=== PATIENT | male | born 1950 | race Caucasian/White ===

== ENCOUNTER 2018-06-02 20:43 | Emergency (ER) | payer MEDICARE ==
[~2018-06-02] VITALS: Ht 172.7 cm; Wt 93.0 kg
[~2018-06-02 20:43] MED LIST: AMLO10TA6 PO; AMLO5TAB7 PO; ASPI-482 PO; AZIT500T PO; COLE1TAB PO; DICY10CA53 PO; FAMO20TA5 PO; HYDR-2868 PO; LOSA100T7 PO; OMEP40CA5 PO; VALS1TAB22 PO; lidocaine cream TOP
[2018-06-02] MEDS ORDERED: ACETAMINOPHEN 500 MG TABLET PO ONE (21:45)
[2018-06-02] MEDS ORDERED: ONDANSETRON PF 4 MG/2 ML VIAL. IV ONE ×2 (22:00→22:15)
--- NOTE | 2018-06-02 22:06 | RAD ---
PQRS Compliance statement: One or more of the following individualized dose reduction techniques were utilized for this examination: 1. Automated exposure control. 2. Adjustment of the mA and/or kV according to patient size. 3. Use of iterative reconstruction technique. Indication:FALL, NECK PAIN, NO PRIORS TECHNIQUE: CT head without IV contrast COMPARISON:None FINDINGS: No pathologic extra-axial or intra-axial fluid collection. The ventricles and basal cisterns are within normal limits. No acute intracranial bleed. Right suboccipital craniectomy. No focal loss of valdovinos-white differentiation. No acute calvarial fractures. The mastoid air cells are clear. IMPRESSION: 1. No acute intracranial process. 2. Right suboccipital craniectomy. Clinically correlate with surgical history. Indication:FALL, NECK PAIN, NO PRIORS TECHNIQUE: CT of the maxillofacial bones without IV contrast multiplanar reformats. COMPARISON: None FINDINGS: Nondisplaced fracture is seen of the right nasal bone. There is opacification of the nasal cavity. Nasal septum is deviated to the right side. There is partial opacification of the anterior ethmoid air cells. Trace amount of dependent fluid is seen in the bilateral maxillary sinuses. Mucous retention cyst or polyp is seen in the left maxillary sinus. The mandible and temporomandibular joints are within normal limits. The lenses, globes, extraocular muscles and intraorbital fat are within normal limits. The noncontrast appearance of the suprahyoid neck soft tissues within normal limits. IMPRESSION: 1. Nondisplaced right nasal bone fracture. 2. Opacification of the nasal cavity may be from hematoma or mucous plugging. Clinically correlate. 3. Findings of chronic sinus disease involving ethmoid air cells and bilateral maxillary sinuses. Indication:FALL, NECK PAIN, NO PRIORS TECHNIQUE: CT of the cervical spine without IV contrast with multiplanar reformats. COMPARISON:None FINDINGS: The cervical spine is in normal anatomic alignment. Atlantoaxial joint interval is preserved. No compression deformities. Facet joints are in normal anatomic alignment. No acute fractures. The noncontrast appearance of the neck soft tissues is within normal limits. Clear lung apices. IMPRESSION: 1. No acute fractures. 2. Mild to moderate multilevel degenerative disc disease. Electronically signed by: Jeb White DO (06/02/2018 10:03 PM) [facility]
[2018-06-02 22:10] LABS: BASO # 0.1 x10^3/uL (0.0-0.2); BASO % 1 % (0-3); EOS # 0.1 x10^3/uL (0.0-0.7); EOS % 2 % (0-3); HEMATOCRIT 41.5 % (39.0-53.0); HEMOGLOBIN 14.8 g/dL (13.0-17.5); LYMPH # 1.3 x10^3/uL (1.0-4.8); LYMPH % 19 % (24-48); MEAN CORPUSCULAR HEMOGLOBIN 32 pg (25-35); MEAN CORPUSCULAR HGB CONC 36 g/dL (31-37); MEAN CORPUSCULAR VOLUME 90 fL (79-100); MONO # 0.6 x10^3/uL (0.0-1.1); MONO % 9 % (0-9); NEUT # 4.7 x10^3uL (1.8-7.7); NEUT % 70 % (31-73); PLATELET COUNT 257 x10^3/uL (140-400); RED BLOOD COUNT 4.59 x10^6/uL (4.30-5.70); RED CELL DISTRIBUTION WIDTH 13.8 % (11.5-14.5); WHITE BLOOD COUNT 6.8 x10^3/uL (4.0-11.0)
--- NOTE | 2018-06-02 22:14 | PHYS DOC ---
Past Medical History Past Medical History: Cancer, Hypertension, OH Additional Past Medical Histor: Prostate Cancer, Cardiac Stents Additional Past Surgical Histo: Prostectomy, cardiac stents, L rotator cuff, L arm "muscle rebuild" Alcohol Use: Occasionally Drug Use: None Adult General Chief Complaint Chief Complaint: MECHANICAL FALL HPI HPI Patient is a 67 year old male who presents with going down for what stairs states that he stepped on the last stair wrong and fell face forward into the bumper of a car. Patient denies LOC or nausea or vomiting. Patient is on blood thinners. He is on Plavix and has a history of a OH and hypertension. Patient states he has not taken any of his meds. Review of Systems Review of Systems Constitutional: Denies fever or chills [] Eyes: Denies change in visual acuity, redness, or eye pain [] HENT: Denies nasal congestion or sore throat [] Respiratory: Denies cough or shortness of breath [] Cardiovascular: No additional information not addressed in HPI [] GI: Denies abdominal pain, nausea, vomiting, bloody stools or diarrhea [] : Denies dysuria or hematuria [] Musculoskeletal: Denies back pain or joint pain [] Integument: Denies rash or skin lesions [] Neurologic: Denies headache, focal weakness or sensory changes [] Endocrine: Denies polyuria or polydipsia [] All other systems were reviewed and found to be within normal limits, except as documented in this note. Current Medications Current Medications Current Medications Medications (Trade) Dose Ordered Sig/[facility] Start Time Stop Time Status Last Admin Dose Admin Acetaminophen (Tylenol) 1,000 mg 1X ONCE 06/02/18 21:45 06/02/18 21:46 DC Amlodipine Besylate (Norvasc) 5 mg 1X ONCE 06/02/18 22:30 06/02/18 22:31 DC 06/02/18 23:02 5 MG Lidocaine HCl (Glydo (Lidocaine) Jelly) 1 ayah 1X ONCE 06/02/18 23:15 06/02/18 23:17 DC Morphine Sulfate (Morphine Sulfate) 4 mg 1X ONCE 06/02/18 23:00 06/02/18 23:01 DC 06/02/18 23:02 4 MG Ondansetron HCl (Zofran) 4 mg 1X ONCE 06/02/18 22:00 06/02/18 22:01 UNV Oxymetazoline HCl (Afrin) 2 spray 1X ONCE 06/02/18 23:15 06/02/18 23:17 DC Sodium Chloride 1,000 ml @ 1,000 mls/hr 1X ONCE 06/02/18 22:15 06/02/18 23:14 DC 06/02/18 22:16 1,000 MLS/HR Allergies Allergies Allergies Coded Allergies Type Severity Reaction Last Updated Verified Beta-Blockers (Beta-Adrenergic Bloc Allergy Severe SHORTNESS OF AIR 03/31/15 Yes ciprofloxacin Allergy Severe Diarrhea 03/31/15 Yes Physical Exam Physical Exam Constitutional: Well developed, well nourished, no acute distress, non-toxic appearance. [] HENT: Normocephalic, atraumatic, bilateral external ears normal, oropharynx moist, no oral exudates, nose normal. [] Eyes: PERRLA, EOMI, conjunctiva normal, no discharge. [] Neck: Normal range of motion, no tenderness, supple, no stridor. [] Cardiovascular:Heart rate regular rhythm, no murmur [] Lungs & Thorax: Bilateral breath sounds clear to auscultation [] Abdomen: Bowel sounds normal, soft, no tenderness, no masses, no pulsatile masses. [] Skin: Warm, dry, no erythema, no rash. [] Back: No tenderness, no CVA tenderness. [] Extremities: No tenderness, no cyanosis, no clubbing, ROM intact, no edema. [] Neurologic: Alert and oriented X 3, normal motor function, normal sensory function, no focal deficits noted. [] Psychologic: Affect normal, judgement normal, mood normal. [] Current Patient Data Vital Signs Vital Signs Date Time Temp Pulse Resp B/P (MAP) Pulse Ox O2 Delivery O2 Flow Rate FiO2 06/02/18 23:24 92 12 95 06/02/18 23:02 Room Air 06/02/18 23:02 229/103 06/02/18 20:45 98.4 98.4 Lab Values Laboratory Tests Test 06/02/18 21:19 White Blood Count 6.8 x10^3/uL (4.0-11.0) Red Blood Count 4.59 x10^6/uL (4.30-5.70) Hemoglobin 14.8 g/dL (13.0-17.5) Hematocrit 41.5 % (39.0-53.0) Mean Corpuscular Volume 90 fL (79-100) Mean Corpuscular Hemoglobin 32 pg (25-35) Mean Corpuscular Hemoglobin Concent 36 g/dL (31-37) Red Cell Distribution Width 13.8 % (11.5-14.5) Platelet Count 257 x10^3/uL (140-400) Neutrophils (%) (Auto) 70 % (31-73) Lymphocytes (%) (Auto) 19 % (24-48) L Monocytes (%) (Auto) 9 % (0-9) Eosinophils (%) (Auto) 2 % (0-3) Basophils (%) (Auto) 1 % (0-3) Neutrophils # (Auto) 4.7 x10^3uL (1.8-7.7) Lymphocytes # (Auto) 1.3 x10^3/uL (1.0-4.8) Monocytes # (Auto) 0.6 x10^3/uL (0.0-1.1) Eosinophils # (Auto) 0.1 x10^3/uL (0.0-0.7) Basophils # (Auto) 0.1 x10^3/uL (0.0-0.2) Sodium Level 136 mmol/L (136-145) Potassium Level 3.6 mmol/L (3.5-5.1) Chloride Level 99 mmol/L (98-107) Carbon Dioxide Level 30 mmol/L (21-32) Anion Gap 7 (6-14) Blood Urea Nitrogen 20 mg/dL (8-26) Creatinine 0.8 mg/dL (0.7-1.3) Estimated GFR (Cockcroft-Gault) 97.0 Glucose Level 121 mg/dL (70-99) H Calcium Level 8.5 mg/dL (8.5-10.1) Troponin I Quantitative < 0.017 ng/mL (0.000-0.055) Laboratory Tests 06/02/18 21:19 Laboratory Tests 18 21:19 EKG EKG [address] Pagan[] Interpretation Time: Sinus Rythm no STEMI. Radiology/Procedures Radiology/Procedures [] Impressions: [facility] [address] [place] [address] IMAGING REPORT Signed PATIENT: NICOLE SIMS ACCOUNT: [id number] : 1950 LOCATION: ER AGE: 67 SEX: M EXAM STATUS: REG ER ORD. PHYSICIAN: JAZZ MCKENZIE APRN REASON: FALL AND WENT FACE FIRST INTO CAR BUMPER PROCEDURE: CT CERVICAL SPINE WO CONTRAST PQRS Compliance statement: One or more of the following individualized dose reduction techniques were utilized for this examination: 1. Automated exposure control. 2. Adjustment of the mA and/or kV according to patient size. 3. Use of iterative reconstruction technique. Indication:FALL, NECK PAIN, NO PRIORS TECHNIQUE: CT head without IV contrast COMPARISON:None FINDINGS: No pathologic extra-axial or intra-axial fluid collection. The ventricles and basal cisterns are within normal limits. No acute intracranial bleed. Right suboccipital craniectomy. No focal loss of valdovinos-white differentiation. No acute calvarial fractures. The mastoid air cells are clear. IMPRESSION: 1. No acute intracranial process. 2. Right suboccipital craniectomy. Clinically correlate with surgical history. Indication:FALL, NECK PAIN, NO PRIORS TECHNIQUE: CT of the maxillofacial bones without IV contrast multiplanar reformats. COMPARISON: None FINDINGS: Nondisplaced fracture is seen of the right nasal bone. There is opacification of the nasal cavity. Nasal septum is deviated to the right side. There is partial opacification of the anterior ethmoid air cells. Trace amount of dependent fluid is seen in the bilateral maxillary sinuses. Mucous retention cyst or polyp is seen in the left maxillary sinus. The mandible and temporomandibular joints are within normal limits. The lenses, globes, extraocular muscles and intraorbital fat are within normal limits. The noncontrast appearance of the suprahyoid neck soft tissues within normal limits. IMPRESSION: 1. Nondisplaced right nasal bone fracture. 2. Opacification of the nasal cavity may be from hematoma or mucous plugging. Clinically correlate. 3. Findings of chronic sinus disease involving ethmoid air cells and bilateral maxillary sinuses. Indication:FALL, NECK PAIN, NO PRIORS TECHNIQUE: CT of the cervical spine without IV contrast with multiplanar reformats. COMPARISON:None FINDINGS: The cervical spine is in normal anatomic alignment. Atlantoaxial joint interval is preserved. No compression deformities. Facet joints are in normal anatomic alignment. No acute fractures. The noncontrast appearance of the neck soft tissues is within normal limits. Clear lung apices. IMPRESSION: 1. No acute fractures. 2. Mild to moderate multilevel degenerative disc disease. Electronically signed by: Jeb White DO (06/02/2018 10:03 PM) [facility] DICTATED and SIGNED BY: JEB WHITE DO DATE: 06/02/182148 Course & Med Decision Making Course & Med Decision Making Patient is a 67 year old male who presents with going down for what stairs states that he stepped on the last stair wrong and fell face forward into the bumper of a car. Patient denies LOC or nausea or vomiting. Patient is on blood thinners. He is on Plavix and has a history of a OH and hypertension. Patient states he has not taken any of his meds. Patient is alert and oriented. Patient has 2 small skin tears to the bridge of his nose and swelling and tenderness with palpation to his nose with some bruising. His nose is bleeding but is controlled with pressure. Patients right knee has a skin tear and on his littlejohn he has another skin tear. Bleeding is controlled. The inside of the patient's upper lip is purple and swollen from his teeth hitting the upper lip but there is no puncture site and there is no bleeding in his mouth. Patient has no knee cervical spine thoracic or lumbar spine pain. He has no rib pain. He denies chest pain or shortness of air. There is no other bruising on the patient's body chest. Patient is given 5 mg of amlodipine because he is hypertensive and has not taken his medication yet. Patient is ordered Tylenol as he asked for it. Patients wounds are cleaned with soap and water by the nurse. 0: Her CT the patient began stating that he is dizzy and feeling nausea needed. Zofran is ordered, blood work, fluids. Dr. Pagan did go in and evaluate this patient also. 2253: Patient's head CT shows 1. No acute intracranial process.2. Right suboccipital craniectomy. Clinically correlate with surgical history. Since maxillofacial CT shows 1. Nondisplaced right nasal bone fracture.2. Opacification of the nasal cavity may be from hematoma or mucous plugging. Clinically correlate. 3. Findings of chronic sinus disease involving ethmoid air cells and bilateral maxillary sinuses. Patient's cervical spine CT shows 1. No acute fractures.2. Mild to moderate multilevel degenerative disc disease. Right knee xray shows no acute findings. Dr. Pagan states he had the patient blow his nose and he blew out a big clot and the bleeding stopped. Dr Pagan then used Afrin nasal spray. The patient will be monitored for rebleeding. Discharge with 6 week follow up with ENT, nasal precautions. I will give a prescription for Amoxicillin and Riley and Afrin spray that he can use every 2 hours. Patient is stable and in no distress. 0000: I checked the patient and asked if his nose. Bleeding. The patient states while it starts to bleed a very little bit and then I got up and used Afrin and then states that it the bleeding then stopped. Patient then states that again the bleeding will start in again he got up and used Afrin and the bleeding stopped. This happened one other time. Patient is told not to use anymore Afrin. The nose does not look to be losing or bleeding at this time. I have told Dr. Pagan and he is in talking to the patient at this time. 0020: While being discharged the patient nose began to bleed again and the patient asked for his nose to be packed. Dr Pagan has now packed his nose. Patient has a appointment tomorrow with his ENT for other sinus related problems. Dragon Disclaimer Dragon Disclaimer This electronic medical record was generated, in whole or in part, using a voice recognition dictation system. Departure Departure Impression: Primary Impression: Nasal bone fracture Additional Impression: Fall Disposition: 01 HOME, SELF-CARE Condition: STABLE Referrals: SARI SOLOMON MD (PCP) Patient Instructions: Nasal Fracture Additional Instructions: Follow up with ENT within 6 weeks. Do no take packing out, do not stick anything up into the nose, try not to sneeze and do not blow your nose. Scripts Hydrocodone/Apap 5-325 (NORCO 5-325 TABLET) 1 Each Tablet 1 TAB PO PRN Q6HRS PRN for PAIN, #10 TAB 0 Refills Prov: JAZZ MCKENZIE STYLIST ASSISTANT 06/02/18 Amoxicillin (AMOXICILLIN) 500 Mg Tablet 1 TAB PO TID, #30 TAB Prov: JAZZ MCKENZIE STYLIST ASSISTANT 06/02/18 Problem Qualifiers Primary Impression: Nasal bone fracture Encounter type: initial encounter Fracture type: closed Qualified Codes: S02.2XXA - Fracture of nasal bones, initial encounter for closed fracture Additional Impression: Fall Encounter type: initial encounter Qualified Codes: W19.XXXA - Unspecified fall, initial encounter JAZZ MCKENZIE STYLIST ASSISTANT Jun 02, 2018 22:14
[2018-06-02] MEDS ORDERED: IV NORMAL SALINE 1000ML BAG 1,000 ML IV ONE (22:15)
[2018-06-02] MEDS ORDERED: MORPHINE SULFATE 4 MG/ML VIAL. IV ONE ×2 (22:15→23:00)
[2018-06-02 22:17] LABS: CALCIUM 8.5 mg/dL (8.5-10.1); CREATININE 0.8 mg/dL (0.7-1.3); POTASSIUM 3.6 mmol/L (3.5-5.1)
[2018-06-02] MEDS ORDERED: amLODIPine BESYLATE 5 MG TABLET PO ONE (22:30)
[2018-06-02] MEDS ORDERED: AMOX500T PO (23:10)
[2018-06-02] MEDS ORDERED: HYDR-971 PO (23:11)
[2018-06-02] MEDS ORDERED: OXYMETAZOLINE 0.05% NASAL SPRAY 30ML BOTTLE. NS ONE (23:15)
[2018-06-02] MEDS ORDERED: LIDOCAINE 2% JELLY 6ML IN APPLICATOR. MM ONE (23:15)
--- NOTE | 2018-06-03 00:09 | RAD ---
Indication:FALL, INJURY TECHNIQUE: 4 views of the right knee COMPARISON:None FINDINGS/ impression: No acute fracture or dislocation. No suprapatellar effusion. Infrapatellar soft tissue swelling seen which may be secondary to hematoma or bursitis. Electronically signed by: Jeb White DO (06/03/2018 12:07 AM) [facility]
[2018-06-03] MEDS ORDERED: MORPHINE SULFATE 4 MG/ML VIAL. IV ONE (00:45)
[2018-06-03 00:50] VITALS: BP 150/88
--- NOTE | 2018-06-03 06:16 | EKG ---
[facility] [address] [place] [address] Test Date: 2018-06-02 Test Time: 22:08:24 Pat Name: NICOLE SIMS Department: Room: Gender: Band Singer: : 1950 Requested By: FREDDIE NICOLAS Order Number: [id number] Reading MD: Mario Mcmahon Measurements Intervals House Rate: 88 P: -3 NV: 168 QRS: -5 QRSD: 90 T: 26 QT: 352 QTc: 429 Interpretive Statements SINUS RHYTHM LEFT ATRIAL ABNORMALITY LEFTWARD AXIS NON SPECIFIC T ABNORMALITY ABNORMAL ECG Electronically Signed On 06-04-2018 11:26:20 CDT by Mario Mcmahon
== END 2018-06-03 00:58 | disposition home or self-care (01) ==
LOC: ER 20:43
DX: S02.2XXA Fracture of nasal bones, initial encounter for closed fracture (principal); M50.30 Other cervical disc degeneration, unspecified cervical region; S81.011A Laceration without foreign body, right knee, initial encounter; S81.811A Laceration without foreign body, right lower leg, initial encounter; R42 Dizziness and giddiness; R11.0 Nausea; I10 Essential (primary) hypertension; I25.2 Old myocardial infarction; Z95.5 Presence of coronary angioplasty implant and graft; Z88.1 Allergy status to other antibiotic agents; Z88.8 Allergy status to other drugs, medicaments and biological substances; W01.198A Fall on same level from slipping, tripping and stumbling with subsequent striking against other object, initial encounter; Y93.89 Activity, other specified; Y92.89 Other specified places as the place of occurrence of the external cause; Y99.8 Other external cause status
CPT/HCPCS: 36415; 70450; 70486; 72125; 73564; 80048; 84484; 85025; 93005; 96361; 96374; 96375; 96376; 99285; J2270; J2405; J7030

== ENCOUNTER → 2019-02-19 | Outpatient (CLI) | payer MEDICARE ==
[~2019-02-19] MED LIST changes: -AMLO10TA6 PO; +AMLO10TA8 PO; +AMLO5TAB10 PO; -AMLO5TAB7 PO; +AMOX500T PO; +GADOTERATE 7.5 MMOL/15ML VIAL. IVP ONE; +HYDR-3164 PO; +LOSA100T14 PO; -LOSA100T7 PO
[2019-02-19 09:04] LABS: CALCIUM 8.4 mg/dL (8.5-10.1); CREATININE 0.7 mg/dL (0.7-1.3); GFR 112.8; POTASSIUM 3.6 mmol/L (3.5-5.1)
--- NOTE | 2019-02-19 10:24 | RAD ---
MRI Cervical Spine Without Contrast History: Cervical stenosis Technique: Multiplanar, multi sequential noncontrast MR imaging was performed of the cervical spine. Comparison: None Findings: There is some motion degradation. Cervical cord caliber is within normal limits without defined or expansile signal abnormality, limited evaluation for subtle signal change due to motion artifact. There is trace C4-5 endplate edema likely reactive/degenerative in etiology. There is moderate to severe degenerative disc disease at C4-5, minimally at C5-6 and C6-7. There is negligible anterior spondylolisthesis C3-C4. There is what may represent a large complex mucous retention cyst at the floor of the left maxillary sinus about 3.2 cm. C2-C3: Spinal canal and neural foramina are adequate. C3-C4: Neural foramina and spinal canal are adequate. There is right facet degenerative change. C4-C5: There is disc osteophyte complex and shallow central protrusion, central canal borderline about 10 mm, mild left greater than right lateral recess stenosis. There is uncovertebral degenerative change bilaterally. Accurate evaluation of neural foramina is limited due to motion, probable fairly severe right and [id number] left neural foramina compromise. C5-C6: There is negligible disc osteophyte complex and bulge. Central canal is adequate about 11 mm, minimal narrowing of the far right lateral recess. There is right facet hypertrophic change. There is uncovertebral degenerative change greater on the right. There is severe narrowing of the right neural foramen, possible minimal narrowing of the left neural foramen. C6-C7: There is negligible disc osteophyte complex eccentric to the lateral recesses, spinal canal overall adequate. There is uncovertebral degenerative change bilaterally. Neural foramina are suboptimally evaluated due to motion, probable fairly severe right and [id number] left neural foramina compromise greater superiorly. C7-T1: Spinal canal and right neural foramen are adequate, likely minimal narrowing of the left neural foramen due to facet and uncovertebral degenerative change. Impression: 1. Exam is degraded by motion. There is mild narrowing of the far lateral recesses greater on the left at C4-5, minimal narrowing of the far right lateral recess C5-6. 2. There is multilevel uncovertebral degenerative change resulting in multilevel neural foramina compromise as stated greatest on the right C4-C5 through C6-7, lesser degree of narrowing on the left at these levels. Accurate evaluation of neural foramina is somewhat limited due to motion. 3. There is moderate to severe degenerative disc disease at C4-5, minimally at C5-6 and C6-7. There is mild spondylosis. Electronically signed by: Lamonte Cheng MD (02/19/2019 10:21 AM) [email or web address]
--- NOTE | 2019-02-19 12:44 | RAD ---
MRI Brain with and without contrast History: Trigeminal neuralgia on right side of the face Technique: Multiplanar, multi sequential pre and postcontrast MR imaging was performed of the brain. Comparison: None Findings: There is some motion degradation. There is right suboccipital craniectomy defect. There is likely small arachnoid cyst of the lateral aspect of the right posterior fossa about 0.7 cm transverse by 2.1 cm AP. There is no evidence of recent infarct or cytotoxic edema. Ventricular size is within normal limits. There is mild generalized prominence of the supratentorial subarachnoid spaces which may be due to mild involutional change or on development basis. There is no significant midline shift or intra-axial mass effect. There is no significant signal abnormality of the brain parenchyma. There is no nodular parenchymal or leptomeningeal enhancement. There is preservation of the major intracranial flow-voids at the skull base. The cerebellar tonsils are normal in location. There is no significant abnormality of the pineal gland. There is a small proximal foot 0.2 x 0.3 cm focus of relative decreased enhancement of the right aspect of the sella although this may be component of the bone. There is a 3.2 cm AP focus of heterogeneous signal of the inferior left maxillary sinus, smaller focus just laterally about 0.7 cm. There is some internal T1 hyperintense signal. There is patchy mild bilateral ethmoid air cell mucosal thickening. There is some deviation of the nasal septum to the right posteriorly. The mastoid air cells are aerated. There is preserved marrow signal of the clivus. There is no significant nodular enhancement in the region of the trigeminal nerve root entry zones, no significant enhancement of Meckel's caves. Impression: 1. Exam is degraded by motion, no significant enhancement of the trigeminal nerve root entry zones or Meckel's caves. There is no evidence of recent infarct or abnormal intracranial enhancement. 2. There is what likely represents a complex mucous retention cyst of the inferior left maxillary sinus. 3. There is right suboccipital craniectomy defect. 4. Small focus of decreased enhancement of the right aspect of the sella is probably component of the bone rather than small lesion. Electronically signed by: Lamonte Cheng MD (02/19/2019 12:39 PM) [email or web address]
[2019-02-19 16:16] LABS: ALBUMIN 3.5 g/dL (3.4-5.0); ALBUMIN/GLOBULIN RATIO 0.9 (1.0-1.7); CALCIUM 8.6 mg/dL (8.5-10.1); CREATININE 0.7 mg/dL (0.7-1.3); GFR 112.8; POTASSIUM 3.6 mmol/L (3.5-5.1); TOTAL BILIRUBIN 0.8 mg/dL (0.2-1.0); TOTAL PROTEIN 7.2 g/dL (6.4-8.2)
== END | disposition home or self-care (01) ==
LOC: MRI 09:56
PROVIDERS: ATTEND Psychiatry & Neurology Neurology
DX: M47.813 Spondylosis without myelopathy or radiculopathy, cervicothoracic region (principal); M50.321 Other cervical disc degeneration at C4-C5 level; M48.02 Spinal stenosis, cervical region; M43.12 Spondylolisthesis, cervical region; M25.78 Osteophyte, vertebrae; M50.221 Other cervical disc displacement at C4-C5 level; M89.38 Hypertrophy of bone, other site; J34.2 Deviated nasal septum; G50.0 Trigeminal neuralgia; D47.9 Neoplasm of uncertain behavior of lymphoid, hematopoietic and related tissue, unspecified
CPT/HCPCS: 36415; 70553; 72141; 80048; 80053; A9575

== ENCOUNTER → 2019-02-25 | Outpatient (CLI) | payer MEDICARE ==
[~2019-02-25] MED LIST changes: -GADOTERATE 7.5 MMOL/15ML VIAL. IVP ONE
--- NOTE | 2019-02-25 12:55 | RAD ---
Examination: MRI of the left shoulder without contrast HISTORY: History of chronic left shoulder pain, rotator cuff repair COMPARISON: None available Technique: Multiplanar, multisequence MR imaging of the left shoulder FINDINGS: The attachment of the subscapularis tendon grossly appears intact. There is mild increased signal identified in the supraspinatus, infraspinatus tendons likely tendinosis. No evidence of full-thickness rotator cuff tear identified. Mild increased signal identified throughout the labrum likely degeneration. Moderate joint space loss identified in the glenohumeral joint with small subchondral cystic changes likely degeneration. Mild degenerative changes identified in the acromioclavicular joint. Acromion is type II. The muscle bulk grossly appears unremarkable. Prior surgical changes of rotator cuff surgery identified. The humerus head is within the glenoid. Mild increased trabecular edema identified in the humerus head. Severe joint space loss identified in the glenohumeral joint with moderate size osteophyte formation likely degeneration. IMPRESSION: 1. Prior surgical changes of rotator cuff repair. Moderate tendinosis supraspinatus tendon. Mild tendinosis infraspinatus tendon. 2. Severe degenerative changes glenohumeral joint. Mild trabecular edema identified in the humerus head likely secondary to degeneration. Electronically signed by: Tristian Gomez MD (02/25/2019 12:51 PM) [email or web address]
== END | disposition home or self-care (01) ==
LOC: MRI 11:15
PROVIDERS: ATTEND Anesthesiology
DX: M25.412 Effusion, left shoulder (principal); M25.712 Osteophyte, left shoulder
CPT/HCPCS: 73221